=== PATIENT | male | born 1975 | race Caucasian/White ===

== ENCOUNTER → 2020-12-13 | Outpatient (CLI) | payer BC ==
[~2020-12-13] MED LIST: BARIUM for suspension 96% w/w (Vanilla Silq Medium Density) PO ONE; BARIUM for suspension 98% w/w (Vanilla Silq High Density) PO ONE
--- NOTE | 2020-12-13 11:00 | Diagnostic Imaging Report ---
EXAMINATION: Upper GI exam. INDICATION: Preop gastric band procedure. COMPARISON: There are no prior studies available for comparison. FINDINGS: The patient swallowed the contrast material without difficulty. There was no delay or obstruction to the passage of the contrast through the esophagus. There was no sign of a hiatal hernia or gastroesophageal reflux. The stomach showed good distensibility and motility. There was no mass or ulceration evident. The duodenal bulb and proximal small bowel were generally unremarkable. IMPRESSION: There is no acute abnormality of the esophagus, stomach, or proximal small bowel. Dictated by: Dictated on workstation # [id number]
== END ==
LOC: RAD 09:45
PROVIDERS: ATTEND Surgery
DX: Z01.818 Encounter for other preprocedural examination (principal); K21.9 Gastro-esophageal reflux disease without esophagitis
CPT/HCPCS: 74246